=== PATIENT | male | born 1970 | race Caucasian/White ===

== ENCOUNTER 2020-03-04 16:32 | Outpatient (CLI) | payer OTHER, SELFPAY ==
--- NOTE | ~2020-03-04 | XR_ITS ---
EXAMINATION: XR hip LT min 3V w AP pelvis INDICATION: Left hip replacement TECHNIQUE: AP view the pelvis and two views of the left hip are obtained on four radiographs. COMPARISON: None available FINDINGS: There are changes of left total hip arthroplasty. Bone alignment is normal. There is no sunny dence of hardware failure or loosening. No fracture is identified. There is mild right hip osteoarthr itis. Phleboliths are noted in the pelvis. IMPRESSION: 1. Changes of left total hip arthroplasty without acute abnormality. Reviewed, dictated and finalized at location A.
== END 2020-03-04 16:33 | disposition home or self-care (01) ==
LOC: ANHIMG 16:39
DX: Z47.1 Aftercare following joint replacement surgery (principal); Z96.642 Presence of left artificial hip joint
CPT/HCPCS: 73502